=== PATIENT | male | born 1965 | race African-American/Black ===

== ENCOUNTER → 2019-04-27 | Outpatient (CLI) | payer BC ==
--- NOTE | 2019-04-27 17:11 | RADIOLOGY REPORT (SQ) ---
EXAM DESCRIPTION: CHEST PA/LATERAL COMPLETED DATE/TIME: 04/27/2019 2:41 pm REASON FOR STUDY: LOCALIZED SWELLING, MASS AND LUMP, UNSPECIFIED COMPARISON: 02/03/2009 TECHNIQUE: Frontal and lateral radiographic views of the chest acquired. NUMBER OF VIEWS: Two view. LIMITATIONS: None. FINDINGS: LUNGS AND PLEURA: No pneumothorax. No consolidation or pleural effusion. MEDIASTINUM AND HILAR STRUCTURES: Stable. HEART AND VASCULAR STRUCTURES: Stable. BONES: No acute findings. HARDWARE: None in the chest. OTHER: No other significant finding. IMPRESSION: NO ACUTE FINDINGS. TECHNICAL DOCUMENTATION: JOB ID: [id number] [place]-72 2010 [employer]- All Rights Reserved Reading location - IP/workstation name: [email or web address]
== END ==
LOC: OD 14:25
PROVIDERS: ATTEND Internal Medicine
DX: R22.2 Localized swelling, mass and lump, trunk (principal)
CPT/HCPCS: 71046

== ENCOUNTER 2019-05-19 07:55 | Emergency (ER) | payer BC ==
--- NOTE | 2019-05-19 09:32 | ER Document Report ---
ED Medical Screen (RME) - General Chief Complaint: Leg Pain Stated Complaint: LEFT KNEE AND LEG PAIN AND SWELLING Time Seen by Provider: 05/19/19 09:30 Primary Care Provider: MISAEL MENDEZ MD [Primary Care Provider] - Follow up as needed Mode of Arrival: Ambulatory Information source: Patient Notes: This 54-year-old male reports to the emergency department with complaints of chronic left knee pain. Reports he has had knee pain for months he came to the emergency department today because the pain was too much. Been taking Tylenol Motrin without relief of pain. Patient reports he was evaluated by his primary care provider Dr. Mendez 2 weeks ago. He is waiting for referral to [facility], [place]. Denies trauma. I have greeted and performed a rapid initial assessment of this patient. A comprehensive ED assessment and evaluation of the patient, analysis of test results and completion of the medical decision making process will be conducted by additional ED providers. Dictation of this chart was performed using voice recognition software; therefore, there may be some unintended grammatical errors. TRAVEL OUTSIDE OF THE [place] IN LAST 30 DAYS: No - Related Data Allergies/Adverse Reactions: No Known Allergies Allergy (Verified 05/19/19 07:59) Past Medical History - Social History Chew tobacco use (# tins/day): No Frequency of alcohol use: None Drug Abuse: None - Past Medical History Cardiac Medical History: Reports: Hx Hypercholesterolemia, Hx Hypertension Endocrine Medical History: Reports: Hx Diabetes Mellitus Type 2 Renal/ Medical History: Denies: Hx Peritoneal Dialysis GI Medical History: Reports: Hx Gastroesophageal Reflux Disease Musculoskeltal Medical History: Reports Hx Arthritis Physical Exam - Vital signs Vitals: Temp Pulse Resp BP Pulse Ox 98.3 F 87 18 163/78 H 98 05/19/19 08:03 05/19/19 08:03 05/19/19 08:03 05/19/19 08:03 05/19/19 08:03 Course - Vital Signs Vital signs: Temp Pulse Resp BP Pulse Ox 98.3 F 87 18 163/78 H 98 05/19/19 08:03 05/19/19 08:03 05/19/19 08:03 05/19/19 08:03 05/19/19 08:03 Doctor's Discharge - Discharge Referrals: MISAEL MENDEZ MD [Primary Care Provider] - Follow up as needed
[2019-05-19] MEDS ORDERED: KETOROLAC TROMETHAMINE INJ/PF 30 MG/1 ML SDV IM ONE (10:07)
--- NOTE | 2019-05-19 10:12 | ER Document Report ---
ED Extremity Problem, Lower - General Chief Complaint: Leg Pain Stated Complaint: LEFT KNEE AND LEG PAIN AND SWELLING Time Seen by Provider: 05/19/19 09:30 Primary Care Provider: MISAEL MENDEZ MD [Primary Care Provider] - Follow up as needed Mode of Arrival: Ambulatory TRAVEL OUTSIDE OF THE [place] IN LAST 30 DAYS: No - HPI Notes: Patient is a 54-year-old male that presents to the emergency department for chief complaint of left knee pain. Patient reports pain in his left knee for the last few months. He denies specific injury or trauma. He states sometimes it becomes more swollen and the swelling will improve. It does seem to be worse when he is walking a lot. Patient has taken ibuprofen intermittently for his pain. He has not had ibuprofen yet today. He denies any fever, chills or joint warmth. He denies numbness or weakness. He denies swelling in his lower extremities. He states he does have an appointment coming up with orthopedics but the pain was increasing so he came to the emergency room. Past Medical History: Diabetes Past Surgical History: Reviewed in chart Social History: Reviewed in chart Family History: Reviewed and noncontributory for presenting illness Allergies: Reviewed, see documented allergy list. REVIEW OF SYSTEMS: CONSTITUTIONAL : No fever No chills No diaphoresis No recent illness EENT: No vision changes No congestion No sore throat CARDIOVASCULAR: No chest pain No palpitations RESPIRATORY: No shortness of breath No cough No difficulty breathing GASTROINTESTINAL: No abdominal pain No nausea No vomiting No diarrhea GENITOURINARY: No dysuria No hematuria No difficulty urinating MUSCULOSKELETAL: No back pain leg pain No arm pain SKIN: No rashes No lesions LYMPHATIC: No swollen, enlarged glands. NEUROLOGICAL: No lightheadedness No headache No weakness No paresthesias PSYCHIATRIC: No anxiety No depression PHYSICAL EXAMINATION: Vital signs reviewed, nursing noted reviewed. GENERAL: Well-appearing, well-nourished and in no acute distress. HEAD: Atraumatic, normocephalic. EYES: Eyes appear normal, extraocular movements intact, sclera anicteric, conjunctiva are normal. ENT: nares patent, oropharynx clear without exudates. Moist mucous membranes. NECK: Normal range of motion, supple without lymphadenopathy LUNGS: Breath sounds clear to auscultation bilaterally and equal. No wheezes rales or rhonchi. HEART: Regular rate and rhythm without murmurs ABDOMEN: Soft, nontender, normoactive bowel sounds. No rebound, guarding, or rigidity. No masses appreciated. EXTREMITIES: Left knee effusion with decreased range of motion in extension and flexion, No joint warmth or erythema, No joint instability, joint line tenderness. Normal left ankle exam. NEUROLOGICAL: No focal neurological deficits. Moves all extremities spontaneously Motor and sensory grossly intact on exam. PSYCH: Normal mood, normal affect. SKIN: Warm, Dry, normal turgor, no rashes or lesions noted on exposed skin - Related Data Allergies/Adverse Reactions: No Known Allergies Allergy (Verified 05/19/19 07:59) Past Medical History - General Information source: Patient - Social History Smoking Status: Never Smoker Chew tobacco use (# tins/day): No Frequency of alcohol use: None Drug Abuse: None Family History: Reviewed & Not Pertinent Patient has suicidal ideation: No Patient has homicidal ideation: No - Past Medical History Cardiac Medical History: Reports: Hx Hypercholesterolemia, Hx Hypertension Endocrine Medical History: Reports: Hx Diabetes Mellitus Type 2 Renal/ Medical History: Denies: Hx Peritoneal Dialysis GI Medical History: Reports: Hx Gastroesophageal Reflux Disease Musculoskeletal Medical History: Reports Hx Arthritis Physical Exam - Vital signs Vitals: Temp Pulse Resp BP Pulse Ox 98.3 F 87 18 163/78 H 98 05/19/19 08:03 05/19/19 08:03 05/19/19 08:03 05/19/19 08:03 05/19/19 08:03 Course - Re-evaluation Re-evalutation: 05/19/19 10:14 Vitals reviewed. Nursing notes reviewed. Patient states that he has been seen by his primary care for this issue but has not had an x-ray performed. I did offer x-ray of the left knee today which patient states he does not want to wait for the results of. He does have arthritic changes to the knee as well as a joint effusion. There is no warmth or fever to suggest septic arthritis. Patient has a knee brace with him that he states gives him some relief. He will continue using his knee brace. He will be given Toradol for pain. He will be started on a course of naproxen for anti-inflammation and pain control. He will follow with orthopedics as already scheduled. - Vital Signs Vital signs: Temp Pulse Resp BP Pulse Ox 98.3 F 87 18 163/78 H 98 08/03/19 08:03 05/19/19 08:03 05/19/19 08:03 05/19/19 08:03 05/19/19 08:03 Discharge - Discharge Clinical Impression: Left knee pain Qualifiers: Chronicity: chronic Qualified Code(s): M25.562 - Pain in left knee; G89.29 - Other chronic pain Condition: Stable Disposition: HOME, SELF-CARE Instructions: Knee Effusion ([facility]) Additional Instructions: Please return to the emergency department if you have any worsening, or concern of your symptoms. Please return to the emergency department if you develop chest pain, difficulty breathing, severe abdominal pain, or ongoing vomiting. Please follow-up with your primary care physician in 2-3 days and any other recommended physicians. If prescribed, take all medications as directed. If you have any questions or concerns do not hesitate to return the emergency department for evaluation. Keep your appointment with orthopedic surgery for follow-up at your earliest availability Limit the amount of deep knee bends and use of your left knee Keep your left leg elevated at or above the level of your heart to help with swelling Prescriptions: Naproxen 500 mg PO BID PRN #30 tablet PRN Reason: Pain Scale Of 1 Referrals: MISAEL MENDEZ MD [Primary Care Provider] - Follow up as needed JAVID COLORADO MD [ACTIVE STAFF] - Follow up as needed
[2019-05-19 11:38] VITALS: BP 125/67
== END 2019-05-19 11:38 | disposition home or self-care (01) ==
LOC: ER 07:55
DX: M25.562 Pain in left knee (principal); G89.29 Other chronic pain; M79.605 Pain in left leg; M79.89 Other specified soft tissue disorders; E11.9 Type 2 diabetes mellitus without complications; I10 Essential (primary) hypertension
CPT/HCPCS: 99283; J1885